=== PATIENT | male | born 1950 ===

== ENCOUNTER → 2018-05-13 20:28 | Outpatient (REF) | payer MEDICARE, SELFPAY ==
[2018-05-13 21:35] LABS: Add Manual Diff / Slide Review NO; Basophils Absolute Auto 100 /uL (0-100); Eosinophils Absolute Auto 100 /uL (0-450); Eosinophils Percent Auto 2.2 % (2-4); Hematocrit 45.9 % (41-53); Hemoglobin 15.1 g/dL (13.5-17.5); Lymphocytes Absolute Auto 1100 /uL (1100-4500); Lymphocytes Percent Auto 21.7 % (25-40); Mean Corpuscular HGB Conc 32.9 % (30-36); Mean Corpuscular Volume 88.3 fL (80-100); Monocytes Absolute Auto 600 /uL (0-900); Monocytes Percent Auto 11.4 % (3-14); Neutrophils Absolute Auto 3300 /uL (1500-7000); Neutrophils Percent Auto 63.7 % (50-75); Platelet Count 279 X10^3/uL (150-400); Red Cell Distribution Width 14.6 % (11.6-14.8); White Blood Cell Count 5.1 X10^3/uL (4.5-11.0)
[2018-05-13 21:44] LABS: Cholesterol 293 mg/dL (140-199); HDL Cholesterol 74 mg/dL (40-60); LDL Cholesterol Calculated 207 mg/dL (<100); Triglycerides 58 mg/dL (35-150); Uric Acid 7.8 mg/dL (3.5-8.5)
[2018-05-13 22:00] LABS: Vitamin D 25 Hydroxy (D3) 60.3 ng/mL (30.0-100.0)
[2018-05-13 22:41] LABS: Hemoglobin A1C% w Est Avg Glu 5.3 % (4.0-6.0)
[2018-05-14 00:33] LABS: Vitamin B12 579 pg/mL (239-931)
[2018-05-15 15:47] LABS: Sex Hormone Binding Globulin 69 nmol/L (22-77)
[2018-05-16 20:51] LABS: Estradiol 24 pg/mL (< 40)
[2018-05-17 09:27] LABS: Vitamin B6 53.7 ng/mL (2.1-21.7)
[2018-05-17 15:35] LABS: PSA Total 0.72 ng/mL (< 4.01)
[2018-05-23 16:16] LABS: Testosterone Free 40.7
[2018-05-23 16:17] LABS: Testosterone Total 491
== END ==
LOC: LAB 20:28
PROVIDERS: Visit Provider Naturopath
DX: E29.1 Testicular hypofunction (principal); E55.9 Vitamin D deficiency, unspecified; E78.5 Hyperlipidemia, unspecified; M10.00 Idiopathic gout, unspecified site; E53.9 Vitamin B deficiency, unspecified
CPT/HCPCS: 36415; 80061; 82306; 82607; 82670; 83036; 84153; 84154; 84207; 84270; 84402; 84403; 84550; 85025